=== PATIENT | male | born 1945 | race Caucasian/White ===

== ENCOUNTER 2017-09-17 08:14 | Day surgery (SDC) | payer OTHER ==
[2017-09-17] MEDS ORDERED: ceFAZolin 2 GM/SWFI 2 GM/20 ML SYR IVP ONE (08:24)
[2017-09-17] MEDS ORDERED: LR 1,000 ML IV ONE (08:27)
[2017-09-17] MEDS ORDERED: LIDOCAINE 1% 2 ML INJ ID PRN (08:27)
--- NOTE | 2017-09-17 09:27 | PDANEPAE ---
ANE History of Present Illness 72 year old male presents for right (possibly bilateral) hernia repair. ANE Past Medical History - Cardiovascular History Hx Hypertension: No Hx Arrhythmias: No Hx Chest Pain: No Hx Coronary Artery / Peripheral Vascular Disease: No Hx CHF / Valvular Disease: No Hx Palpitations: No - Pulmonary History Hx COPD: No Hx Asthma/Reactive Airway Disease: No Hx Recent Upper Respiratory Infection: No Hx Oxygen in Use at Home: No Hx Sleep Apnea: No Sleep Apnea Screening Result - Last Documented: Negative - Neurologic History Hx Cerebrovascular Accident: No Hx Seizures: No Hx Dementia: No - Endocrine History Hx Diabetes: No - Renal History Hx Renal Disorders: No - Liver History Hx Hepatic Disorders: No - Neurological & Psychiatric Hx Hx Neurological and Psychiatric Disorders: No - Cancer History Hx Cancer: No - Congenital Disorder History Hx Congenital Disorders: No - GI History Hx Gastrointestinal Disorders: No - Other Health History Other Health History: wears glasses - Chronic Pain History Chronic Pain: No - Surgical History Prior Surgeries: tonsillectomy at 5 yo ANE Review of Systems Review of systems is: negative Review of Systems: - Exercise capacity Exercise capacity: >=4 METS METS (RN): 4 METS ANE Patient History - Allergies Allergies/Adverse Reactions: peanut Allergy (Verified 09/17/17 08:57) - Home Medications Home Medications: NK [No Known Home Meds] 09/14/17 [Last Taken Unknown] - NPO status NPO Status: no food or drink >8 hours NPO Since - Liquids (Date): 09/16/17 NPO Since - Liquids (Time): 19:30 NPO Since - Solids (Date): 09/16/17 NPO Since - Solids (Time): 19:30 - Anes Hx Anes Hx: no prior problems - Smoking Hx Smoking Status: Never smoked - Family Anes Hx Family Hx Anesthesia Complications: none ANE Labs/Vital Signs - Vital Signs Vital Signs: reviewed preoperatively; see RN documention for details Blood Pressure: 144/86 Heart Rate: 63 Respiratory Rate: 16 O2 Sat (%): 95 Height: 177.8 cm Weight: 85.8 kg ANE Physical Exam - Airway Neck exam: FROM Mallampati Score: Class 2 Mouth exam: normal dental/mouth exam - Pulmonary Pulmonary: no respiratory distress - ASA Status ASA Status: II ANE Anesthesia Plan Anesthesia Plan: general endotracheal anesthesia Total IV Anesthesia: No
[2017-09-17] MEDS ORDERED: BUPIVACAINE 0.5% 30 ML SDV ONE (09:55)
--- NOTE | 2017-09-17 10:41 | PDHPUP ---
History & Physical Update H&P update statement: This history and physical update is based on an assessment of the patient which was completed after admission or registration (within 24 hours), but prior to the surgery/procedure. H&P update: H&P reviewed & patient examined, no change in patient's condition since H&P completed
[2017-09-17] MEDS ORDERED: MIDAZOLAM 2 MG/2 ML VIAL IVP ONE (11:04)
[2017-09-17] MEDS ORDERED: PROPOFOL 200 MG/20 ML VIAL ONE (11:08)
[2017-09-17] MEDS ORDERED: fentaNYL 100 MCG/2 ML INJ ONE (11:08)
[2017-09-17] MEDS ORDERED: ONDANSETRON 4 MG/2 ML VIAL IVP PRN (11:21)
[2017-09-17] MEDS ORDERED: OXYCODONE/APAP 5/325 TAB PO PRN (11:21)
[2017-09-17] MEDS ORDERED: PHENYLEPHRINE HCL 100 MCG/ML SYR IVP PRN (11:21)
[2017-09-17] MEDS ORDERED: LR 500 ML IV PRN (11:21)
[2017-09-17] MEDS ORDERED: ACETAMINOPHEN 500 MG TAB PO PRN (11:21)
[2017-09-17] MEDS ORDERED: NALOXONE HCL 0.4 MG/ML INJ IVP PRN (11:21)
[2017-09-17] MEDS ORDERED: fentaNYL 100 MCG/2 ML INJ IVP PRN (11:21)
[2017-09-17] MEDS ORDERED: ONDANSETRON 4 MG/2 ML VIAL ONE (12:11)
[2017-09-17] MEDS ORDERED: DEXAMETHASONE 4 MG/ML VIAL ONE (12:11)
[2017-09-17] MEDS ORDERED: SUGAMMADEX SODIUM 200 MG/2 ML VIAL IVP ONE (12:11)
--- NOTE | 2017-09-17 12:32 | POSTOPPROG ---
Post Op Note Date of Operation: 09/17/17 Surgeon: Kenan Moore Clip On Sunglasses Assembler: Afua Balbuena Anesthesiologist: Diaz Reich Anesthesia: GET(General Endotracheal) Pre-op Diagnosis: BIH Post-op Diagnosis: same Procedure: lap BIH repair with mesh Findings: R indirect sac, small L direct weakness Inf/Abcess present in the surg proc area at time of surgery?: No EBL: Minimal Complications: none Specimen(s): none
[2017-09-17 13:25] VITALS: TEMP 97.9
[2017-09-17 14:05] VITALS: BP 116/80; PULSE 65; RESP 16; O2SAT 91
--- NOTE | 2017-09-17 15:37 | POSTANESTH ---
Post Anesthetic Evaluation Cardiovascular Status: Normal, Stable, Similar to Pre-Op Cond Respiratory Status: Normal, Stable, Similar to Pre-op Cond. Level of Consciousness/Mental Status: Can Participate in Eval, Alert and Oriented Pain Control: Adequate, Prn Tx Ordered Nausea/Vomiting Control: Adequate, Prn Tx Ordered Complications Possibly Related to Anesthesia: None Noted
--- NOTE | 2017-09-18 20:03 | GOP ---
[f rep st] OPERATIVE REPORT DATE OF OPERATION: 09/17/2017 SURGEON: Kenan Moore MD LOCOMOTIVE ENGINEER: MARIA ISABEL Asencio ANESTHESIOLOGIST: Diaz Reich MD PREOPERATIVE DIAGNOSIS: Right inguinal hernia. POSTOPERATIVE DIAGNOSIS: Bilateral inguinal hernias. PROCEDURE PERFORMED: Laparoscopic bilateral inguinal hernia repairs FINDINGS: Patient was found to have bilateral indirect hernias, right much greater than the left. DESCRIPTION OF PROCEDURE: The patient was taken to the operating room, where he received satisfactory general endotracheal anesthesia. He was prepped and draped in the usual sterile fashion. An infraumbilical incision was made. Dissection was carried down to the rectus sheath, which was incised. A subfascial tunnel was developed in the preperitoneal space that was dissected free with a balloon dissector, which was replaced with CO2 insufflation trocar. Two other trocars were placed in the lower abdomen under direct vision. Juan ligament was exposed bilaterally. The cords were mobilized bilaterally. Peritoneum was dissected off the cord structures. On the right, there was a large indirect sac, which was dissected free and reduced. On the left, there was a smaller indirect sac, which was dissected free and reduced. Bilateral Covidien mesh patches were selected. On the left, a simple onlay patch was used of Covidien polyester mesh. This was anchored in place with the AbsorbaTack securing it to Juan ligament, to the lacunar ligament, to the anterior abdominal wall, and the lateral abdominal wall outside the internal ring. On the right, a split patch was used to pass the limb around the cord structures. It was anchored in a completely similar manner. Hemostasis was achieved. The wounds were closed with 0 Vicryl for the fascia, 4-0 Monocryl subcuticular stitch for the skin. All layers infiltrated with 0.5% Marcaine. Blood loss negligible. Taken to recovery room in good condition. /[id number]/MODL MTDD
== END 2017-09-17 14:07 | disposition home or self-care (01) ==
LOC: FSGY 08:14
PROVIDERS: ATTEND Surgery
PROC: 0YUA4JZ Supplement Bilateral Inguinal Region with Synthetic Substitute, Percutaneous Endoscopic Approach (ICD-10-PCS; principal; 2017-09-17 10:00)
DX: K40.90 Unilateral inguinal hernia, without obstruction or gangrene, not specified as recurrent (principal)
CPT/HCPCS: C1727; C1781; J0690; J1100; J2250; J2405; J2704; J3010